=== PATIENT | male | born 1950 | race Caucasian/White ===

== ENCOUNTER 2025-07-21 13:04 | Emergency (ER) | payer MEDICARE, SELFPAY ==
--- NOTE | ~2025-07-21 | CT_ITS ---
CT HEAD CTA NECK, CTA HEAD Clinical History: weakness unilateral Comparison: None TECHNIQUE: Unenhanced axial images skull base to vertex Coronal, sagittal reformats Helical images thoracic inlet to vertex IV contrast information not listed in PACS Coronal, sagittal reformats. Multi planar MIPS. CT images acquired with automatic exposure control for dose reduction DLP: 1828 mGy-cm Findings: CT HEAD Infarct left parietal lobe. No associated mass effect or sulcal effacement. Small hypodense focus adjacent to frontal horn of right lateral ventricle, likely chronic white matter microvascular ischemic change. Sulci, ventricles: Unremarkable. No intracerebral hemorrhage. No evidence acute territorial infarct. No mass effect, midline shift. Bony calvarium intact. Visualized paranasal sinuses: Clear. Mastoid air cells: Clear. No abnormal foci of contrast enhancement. Patent dural venous sinuses. CTA NECK NASCET Criteria utilized Aortic arch: No aneurysm or dissection. Great vessel origins: No stenosis. CCAs: No dissection. No stenosis. Cervical ICAs: Bulb calcifications but patent without significant stenosis. Vertebral Arteries: Patent. Lung Apices: Clear. Thyroid: Unremarkable. Nodes: No enlarged nodes. Bones: No acute bony abnormality. CTA HEAD: Aneurysms: None. Intracranial ICAs: Patent, unremarkable. ACAs and their distal branches: Patent, unremarkable. A-Comm: Identified. Patent, unremarkable. MCAs and their distal branches: Patent, unremarkable. Basilar artery: Patent, unremarkable. government affairs manager and their distal branches: Patent, unremarkable. P-Comms: Neither side present. IMPRESSION: CT HEAD: 1. No acute intracranial findings. 2. Chronic infarct left parietal lobe. CTA NECK: 1. No ICA stenosis or other acute arterial abnormality. CTA HEAD: 1. No large vessel arterial occlusive disease or other acute findings. 2. No aneurysms. Reviewed, dictated and finalized at location R. BROKER
--- NOTE | ~2025-07-21 | XR_ITS ---
Examination: XR chest 1V portable Clinical History: weakness Comparison: None Technique: Portable AP Findings: Heart size mildly enlarged. Lungs clear. No acute bony abnormality. IMPRESSION: 1. No acute cardiopulmonary findings given portable technique. Reviewed, dictated and finalized at location R. CONDITIONING UNIT TESTER
[2025-07-21 13:02] VITALS: BP 142/81; PULSE 75; RESP 20; O2SAT 97
[2025-07-21 13:06] VITALS: BP 142/81; PULSE 76; RESP 22; TEMP 37.2; O2SAT 96
--- NOTE | 2025-07-21 13:06 | ECG_ITS ---
Test Date: 2025-07-21 13:27:20 Measurements Intervals [place] Rate: 75 P: 69 MS: 179 QRS: 85 QRSD: 137 T: 2 QT: 398 QTc: 447 Interpretive Statements SINUS RHYTHM RIGHT BUNDLE BRANCH BLOCK INFERIOR INFARCT, AGE INDETERMINATE BASELINE ARTIFACT- I, III, AVR, AVL, AVF, V4-V6 ABNORMAL ECG No previous ECG available for comparison Electronically Signed On 07-21-2025 16:04:13 [employer]CHING MACHINE OPERATOR by Frank Eubanks D.O.
--- NOTE | 2025-07-21 13:08 | ED_ITS ---
HPI - Neuro Symptoms/Deficit General Chief Complaint: Suspected CVA Stated Complaint: poss CVA Time Seen by Provider: 07/21/25 13:07 History of Present Illness HPI Narrative: 74-year-old male prior history of TIA present to the emergency department for evaluation for acute onset of right sided weakness. Patient was at a restaurant with his family only walked out patient had a stumble but did not injure himself. Patient was having difficulty unlocking the car door with his right hand. Patient went to lay down states he did not feel well. The initial stumble the patient's last known normal was at 12:00 p.m.. Patient does have a prior history of TIA. Related Data Allergies Allergy/AdvReac Type Severity Reaction Status Date / Time No Known Allergies Allergy Verified 07/21/25 13:35 Course Vital Signs Vital signs: Vital Signs Pulse Rate 75 07/21/25 13:02 Respiratory Rate 20 07/21/25 13:02 Blood Pressure 142/81 H 07/21/25 13:02 Pulse Oximetry 97 07/21/25 13:02 Temperature 99 F 07/21/25 13:35 Pulse Rate 82 07/21/25 13:35 Respiratory Rate 20 07/21/25 13:35 Blood Pressure 142/81 H 07/21/25 13:36 Pulse Oximetry 97 07/21/25 13:35 Oxygen Delivery Room Air 07/21/25 13:35 [facility] MDM Narrative Medical decision making narrative: 74-year-old male presents emergency department for evaluation for right-sided weakness confusion and stroke symptoms that started at noon. Patient is not normal was 12:00 p.m.. Upon arrival to the emergency department patient did not have flaccid paralysis of the right side but did have a tremor and did have decreased coordination of the right side. Patient did have right-sided gaze deviation. Patient was able to answer some questions but is confused and not able to participate in the neuro exam. Patient's family states he does have heavy prior history of TIA for which he was treated at [place]. Patient does take Xarelto. 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 Due to concern for seizure activity patient was treated with 1 g of IV Keppra and 2 g of IV Versed. Patient's tremor on the right did improve but no significant change in the patient's mental status. I did discuss the case with Dr. Romo at [facility] and patient was accepted for transfer. I discussed the case with the ED physician Dr. Shine and patient was accepted for transfer. Patient's and patient family were updated on the concern for CVA versus focal seizure. Patient will be transferred to state this and was hospital up emergency department by helicopter. Patient was protecting his airway at time of transfer. Patient's blood pressure was 120/89. Differential Diagnosis Differential Diagnosis: CVA, focal seizure, TIA, subdural hematoma, subarachnoid hemorrhage Lab Data MDM Lab Attestation statement: I personally reviewed the patient's lab results. 07/21/25 13:27 07/21/25 13:27 Labs: Lab Results 07/21/25 Range/Units 13:27 WBC 8.3 (4.5-10.0) K/mm3 RBC 5.00 (4.6-6.20) M/mm3 Hgb 14.4 (14.0-18.0) g/dL Hct 45.5 (42.0-52.0) % MCV 91.0 (80-100) fl MCH 28.8 (26-34) pg MCHC 31.6 L (32-36) g/dl RDW 14.5 (11.5-14.5) % Plt Count 180 (150-375) k/mm3 MPV 10.1 (7.4-10.4) fl Immature Gran % (Auto) 0.4 (0-0.5) % Neut % (Auto) 76.4 H (45.5-73.1) % Lymph % (Auto) 12.7 L (18.3-44.2) % [place] % (Auto) 9.3 H (2.6-8.5) % Eos % (Auto) 0.8 (0-4.4) % Baso % (Auto) 0.4 (0.2-1.2) % Lymph # (Auto) 1.05 (0.9-3.2) K/mm3 [place] # (Auto) 0.8 H (0.1-0.6) K/mm3 Eos # (Auto) 0.1 (0-0.3) K/mm3 Baso # (Auto) 0.0 (0.0-0.1) K/mm3 Abs Immat Gran (auto) 0.03 (0.00-0.031) K/mm3 Absolute Neuts (auto) 6.3 (1.3-6.7) K/mm3 Absolute Nucleated RBC 0.000 (0.0-0.012) K/mm3 Nucleated RBC % 0.0 (0.0-0.2) % PT 16.2 H (11.1-14.7) Seconds INR 1.3 APTT 30.2 (22.3-36.8) Seconds Sodium 134 L (137-145) mmol/L Potassium 4.1 (3.4-5.0) mmol/L Chloride 103 (98-107) mmol/L Carbon Dioxide 25 (22-30) mmol/L Anion Gap 6 (4-12) mmol/L BUN 23 H (9-20) mg/dL Creatinine 1.04 (0.7-1.3) mg/dL Estim Creat Clear Calc 72 ml/min Estimated GFR > 60 (59 - ) Glucose 112 H (65-110) mg/dL Calcium 9.6 (8.4-10.2) mg/dL Total Bilirubin 0.5 (0.2-1.3) mg/dL AST 36 (17-59) U/L ALT 34 (6-50) U/L Alkaline Phosphatase 76 (38-126) U/L Troponin I 0.012 (0.000-0.034) ng/mL Total Protein 6.5 (6.3-8.2) g/dL Albumin 3.7 (3.5-5.1) g/dL Imaging Data Radiologist's impression: ITS Impressions Head/Neck CTA 07/21/25 13:26 IMPRESSION: CT HEAD: 1. No acute intracranial findings. 2. Chronic infarct left parietal lobe. CTA NECK: 1. No ICA stenosis or other acute arterial abnormality. CTA HEAD: 1. No large vessel arterial occlusive disease or other acute findings. 2. No aneurysms. Chest X-Ray 07/21/25 13:40 IMPRESSION: 1. No acute cardiopulmonary findings given portable technique. Critical Care Time Critical Care Time Critical Care Time: Yes Time Type: Continuous Initial evaluation, discuss w/ involved parties, attempting to gather old records: 10 minutes Documenting medical record: 10 minutes Review of results (EKG's, labs, imaging): 5 minutes Serial repeat bedside evaluation: 15 minutes Discussing case with multiple memebers of the care team and consultants: 15 minutes Total Critical Care Time: 55 Discharge Plan Discharge Clinical Impression: Acute CVA (cerebrovascular accident), Partial seizure Patient Disposition: Acute Care Hospital Condition: Serious Patient Language: Luxembourgish Follow-up/Referrals: PHYSICIAN NOT ON STAFF,NONSTAFF [Primary Care Provider] Quality Stroke Scale Stroke Scale 1: Stroke scale date:: 07/21/25 Stroke scale time:: 13:20 1a Level of consciousness: alert-0 1b Level of consciousness questions: answers none correctly-2 1c Level of consciousness commands: obeys neither correctly-2 2 Best gaze: forced deviation-2 3 Visual: no visual loss-0 4 Facial palsy: normal-0 5a Motor: left arm: no drift-0 5b Motor: right arm: some effort/gravity-2 6a Motor: left leg: some effort/gravity-2 6b Motor: right leg: no drift-0 7 Limb ataxia: present in two limbs-2 8 Sensory: normal-0 9 Best language: no aphasia-0 10 Dysarthria: normal-0 11 Extinction and inattention: no abnormality-0 Level:: 12
[2025-07-21] MEDS: levETIRAcetam 1000MG/NACL100ML 1,000 MG/100 ML BAG 400 MG IVPB (13:33)
[2025-07-21] MEDS: MIDAZOLAM HCL (*CRX) 2 MG/2 ML VIAL IV PUSH (13:34)
[2025-07-21 13:35] VITALS: PULSE 82; RESP 20; TEMP 37.2; O2SAT 97
[2025-07-21 13:35] LABS: Hematocrit 45.5 % (42.0-52.0); Hemoglobin 14.4 g/dL (14.0-18.0); Immature Granulocyte Percent A 0.4 % (0-0.5); Lymphocytes Absolute Auto 1.05 K/mm3 (0.9-3.2); Mean Corpuscular HGB Conc 31.6 g/dl (32-36); Mean Corpuscular Hemoglobin 28.8 pg (26-34); Mean Corpuscular Volume 91.0 fl (80-100); Nucleated Red Blood Cells Absolute Auto 0.000 K/mm3 (0.0-0.012); Nucleated Red Blood Cells Perc 0.0 % (0.0-0.2); Platelet Count Result 180 k/mm3 (150-375); Red Blood Count 5.00 M/mm3 (4.6-6.20); White Blood Count 8.3 K/mm3 (4.5-10.0)
[2025-07-21 13:36] VITALS: BP 142/81
[2025-07-21 13:47] LABS: INR 1.3; Prothrombin Time 16.2 Seconds (11.1-14.7)
[2025-07-21 13:48] LABS: Alanine Aminotransferase 34 U/L (6-50); Albumin Level 3.7 g/dL (3.5-5.1); Alkaline Phosphatase 76 U/L (38-126); Anion Gap 6 mmol/L (4-12); Aspartate Amino Transferase 36 U/L (17-59); Bilirubin,Total 0.5 mg/dL (0.2-1.3); Blood Urea Nitrogen 23 mg/dL (9-20); Calcium 9.6 mg/dL (8.4-10.2); Carbon Dioxide 25 mmol/L (22-30); Chloride 103 mmol/L (98-107); Estimated CRCL calculation 72 ml/min; Estimated Glomerular Filt Rate > 60; Glucose 112 mg/dL (65-110); Partial Thromboplastin Time 30.2 Seconds (22.3-36.8); Potassium 4.1 mmol/L (3.4-5.0); Sodium 134 mmol/L (137-145); Total Protein 6.5 g/dL (6.3-8.2)
--- OUTSIDE RECORDS SUMMARY | 2025-07-21 13:52 | XMS_ITS | Clinical Summary ---
Author Organization [facility] Address [address] [place] [address] Care Team Providers Care Data Governance Consultant Name Role Phone Aby Meyer NP Primary Care Pr ovider Allergies Active Allergy Reactions Criticality Noted Date Comments Codeine Itching,Hives High 09/19/2018 Medications metFORMIN (GLUCOPHAGE) 500 mg tabletIndications: Newly diagnosed diabetes (HCC) Take 1 tablet (500 mg total) by mouth 2 (two) times a day with meals 180 tablet 05/04/20 25 Active omeprazole (PriLOSEC) 20 mg capsuleIndications :Heart burn Take 1 capsule (20 mg total) by mouth daily 90 capsule 05/04/20 25 Active tamsulosin (FLOMAX) 0.4 mg extended release capsuleIndications :Benign prostatic hyperplasia without lower urinary tract symptoms Take 1 capsule (0.4 mg total) by mouth daily 90 capsule 2 05/04/20 25 Active rivaroxaban (Xarelto) 20 mg tabletIndications: Chronic a-fib (HCC) Take 1 tablet (20 mg total) by mouth daily with dinner 90 tablet 05/04/20 25 Active amLODIPine (NORVASC) 5 mg tabletIndications: HTN (hypertension), benign Take 1 tablet (5 mg total) by mouth daily 90 tablet 05/04/20 25 Active atorvastatin (LIPITOR) 40 mg tabletIndications: Moderate mixed hyperlipidemia not requiring statin therapy Take 1 tablet (40 mg total) by mouth daily 90 tablet 05/04/20 25 Active lisinopril-hydroCH LOROthiazide (ZESTORETIC) 10-12.5 mg per tabletIndications: hypertension Take 1 tablet by mouth daily 90 tablet 05/04/20 25 Active metoprolol (LOPRESSOR) 100 mg tabletIndications: Chronic a-fib (HCC),HTN (hypertension), benign Take 0.5 tablets (50 mg total) by mouth 2 (two) times a day 90 tablet 05/04/20 25 Active sildenafiL (VIAGRA) 50 mg tabletIndications: Erectile dysfunction, unspecified erectile dysfunction type Take 1 tablet (50 mg total) by mouth daily as needed for erectile dysfunction 10 tablet 05/04/20 25 Active Active Problems Problem Noted Date Diagnosed Date Heart burn 05/04/2025 Assessment & Plan (05/04/2025 4:11 PM CDT): Continue omeprazole 20 mg daily. Avoid late meals, elevate head of bed, limit trigger foods. Orders: omeprazole (PriLOSEC) 20 mg capsule; Take 1 capsule (20 mg total) by mouth daily Benign prostatic hyperplasia without lower urinary tract symptoms 05/04/2025 Assessment & Plan (05/04/2025 4:11 PM CDT): Continue tamsulosin nightly. Monitor for dizziness, hypotension. If LUTS worsens, consider finasteride or urology referral. Orders: tamsulosin (FLOMAX) 0.4 mg extended release capsule; Take 1 capsule (0.4 mg total) by mouth daily PSA screen; Future Chronic a-fib 05/04/2025 Assessment & Plan (05/04/2025 4:11 PM CDT): Continue rivaroxaban 20 mg daily, s/p ablation 12/2024, on metoprolol for rate control. Continue metoprolol. Monitor for bruising, bleeding. Orders: rivaroxaban (Xarelto) 20 mg tablet; Take 1 tablet (20 mg total) by mouth daily with dinner metoprolol (LOPRESSOR) 100 mg tablet; Take 0.5 tablets (50 mg total) by mouth 2 (two) times a day CBC with auto differential; Future Comprehensive metabolic panel; Future Erectile dysfunction 05/04/2025 Assessment & Plan (05/08/2025 3:54 PM CDT): Erectile dysfunction likely multifactorial (vascular disease, diabetes, age, beta norma use). Patient interested in tadalafil daily plus sildenafil PRN. Given history of CAD s/p CABG, HFrEF, AFib on rivaroxaban, TIA, and BPH on tamsulosin-requires careful consideration due to hypotension risks and cardiac status. Increases risk of hypotension especially with tamsulosin. Potential side effects flushing, headache, nasal congestion, dizziness, we are vision changes, priapism. Plan to discuss with collaborate or given complex cardiac history before initiating dual therapy. We will consider to the tadalafil 5 mg daily for baseline improvement in erectile dysfunction. Sildenafil 25 mg PRN (max once daily) for breakthrough ED if needed. Separate both from tamsulosin by greater than 4 hours to minimize hypotension rest. Orders: sildenafiL (VIAGRA) 50 mg tablet; Take 1 tablet (50 mg total) by mouth daily as needed for erectile dysfunction HFrEF (heart failure with reduced ejection fract ion) 02/01/2025 Newly diagnosed diabetes 06/09/2019 Assessment & Plan (05/04/2025 4:11 PM CDT): Continue metformin; titrate up as tolerated to 1000 mg b.i.d. if GI side effects minimal. Check hemoglobin A1c every 3 months until stable, goal less than 7%. Consistent carb diet. Encourage exercise 150 minute per week as tolerated. Annual diabetic eye exam, foot exam, urine albumin creatinine ratio. Orders: RetinaVue Scanner - OU - Both Eyes metFORMIN (GLUCOPHAGE) 500 mg tablet; Take 1 tablet (500 mg total) by mouth 2 (two) times a day with meals Hemoglobin A1c; Future Elevated LFTs 09/26/2018 Atherosclerosis of [place] co ronary artery of [place] heart without angina pectoris 09/19/2018 HTN (hypertension), benign 09/19/2018 Assessment & Plan (05/04/2025 4:11 PM CDT): Continue lisinopril-HCTZ, amlodipine, metoprolol. Goal BP less than 130/80. Continue regimen, check CMP every 3-6 months. Encourage home blood pressure monitoring on lifestyle measures. Watch for low blood pressure. Orders: amLODIPine (NORVASC) 5 mg tablet; Take 1 tablet (5 mg total) by mouth daily lisinopril-hydroCHLOROthiazide (ZESTORETIC) 10-12.5 mg per tablet; Take 1 tablet by mouth daily metoprolol (LOPRESSOR) 100 mg tablet; Take 0.5 tablets (50 mg total) by mouth 2 (two) times a day CBC with auto differential; Future Comprehensive metabolic panel; Future Lipid panel; Future Albumin Creatinine Ratio, Urine; Future Hyperlipidemia 09/19/2018 Assessment & Plan (05/04/2025 4:11 PM CDT): Continue atorvastatin 40 mg daily. Repeat lipid every 6-12 months. Orders: atorvastatin (LIPITOR) 40 mg tablet; Take 1 tablet (40 mg total) by mouth daily Lipid panel; Future Albumin Creatinine Ratio, Urine; Future Mild asthma without complication 09/19/2018 S/P CABG (coronary artery bypass graft) 09/19/19 Encounters Date Type Department Care Team Description 07/09/2025 Telephone [facility] Cardiology [address] [address] Deep Medina MD Scheduling Appointments 05/06/2025 Results Follow-Up [facility] [address] [place] [phone] Aby Meyer NP CBC with auto differential, Comprehensive metabolic panel, PSA screen, Additional followed-up results: 5 05/04/2025 11:02 AM CDT - 05/04/2025 11:59 PM CDT Hospital Encounter [address] [phone] Chronic a-fib (HCC); HTN (hypertension), benign; Benign prostatic hyperplasia without lower urinary tract symptoms; Newly diagnosed diabetes (HCC); Moderate mixed hyperlipidemia not requiring statin therapy Discharge Disposition: Discharge to home or self care 05/04/2025 10:00 AM CDT Office Visit [facility] [address] [phone] Aby Meyer NP Newly diagnosed diabetes (HCC) (Primary Dx); Chronic a-fib (HCC); Moderate mixed hyperlipidemia not requiring statin therapy; HTN (hypertension), benign; Heart burn; Benign prostatic hyperplasia without lower urinary tract symptoms; Erectile dysfunction, unspecified erectile dysfunction type from Last 3 Months Immunizations Immunization Administration Dates Next Due Influenza, Trivalent, High D ose, Split, Preservative Free, Intramuscular 06/08/2019,09/19/2018 Pneumococcal Conjugate PCV 13 09/19/2018 Surgical History Surgery Date Site/Laterality Comments ABLATION 12/24/2024 Medical History Medical History Date Comments Hypertension Transient ischemic attack (TIA) 08/09/2024 Asthma Atrial fibrillation (HCC) Enlarged prostate Social History Tobacco Use Types Packs/Day Years Used Date Smoking Tobacco: Former Cigarettes S tarted: 1970 Smokeless Tobacco: Current Chew Tobacco Cessation:Ready to Q uit: Not Asked; Counseling Given: Not Answered PHQ-2 Answer Date Recorded PHQ-2 Total Score (If total score is 3 or more points, staff should administer the PHQ-9) 0 02/01/2025 PHQ-9 Answer Date Recorded PHQ-9 Total Score 0 02/01/2025 Personal Safety Answer Date Recorded Have you ever been in or are you currently in a harmful physical or emotional relationship or is someone making you feel afraid or unsafe? Denies 01/24/2025 Sex and Gender Information Value Date Recorded Sex Assigned at Not on file Legal Sex Male 8:05 AM [employer] Gender Identity Not on file Sexual Orientation Not on file Last Filed Vital Signs Vital Sign Reading Time Taken Comments Blood Pressure 120/66 05/04/2025 9:53 AM CDT Pulse 68 05/04/2025 9:53 AM CDT Temperature 36.5 C (97.7 F) 05/04/2025 9:53 AM CDT Respiratory Rate 16 01/24/2025 3:45 PM CDT Oxygen Saturation 98% 05/04/2025 9:53 AM CDT Inhaled Oxygen Concentration - - Weight 102.1 kg (225 lb) 05/04/2025 9:53 AM CDT Height 182.9 cm (6') 05/04/2025 9:53 AM CDT Body Mass Index 30.52 05/04/2025 9:53 AM CDT Plan of Treatment Health Maintenance Due Date Last Done Comments Colon Cancer Screening-Colonoscopy 1952 Hepatitis C Screening 1950 Dilated Eye Exam 1952 Foot Exam 1952 Hepatitis B Screening 1970 Zoster Vaccine (1 of 2) 2002 Abdominal Aortic Aneurysm (A AA) Screen 2017 Pneumococcal vaccine 65+ (2 of 2 - PPSV23, PCV20, or PCV21) 11/14/2018 09/19/2018 Influenza Vaccine (#1) 2025 06/08/2019, 2018 Hemoglobin A1C 11/01/2025 05/04/2025, 01/14, 02/01/2025, Additional history exists Depression Screening 02/01/2026 02/01/2025, 02/02/20 Fall Risk Assessment 02/01/2026 02/01/2025 Well Visit 65+ 02/01/2026 02/01/2025, 02/01/2025 Albumin Creatinine Ratio, Urine 05/04/2026 Lipid Panel 05/04/2026 05/04/2025, 01/14, 09/20/2018 eGFR 05/04/2026 05/04/2025, 01/24/2025 DTaP/Tdap/Td Vaccine (3 - Td or Tdap) 02/27/2027 02/27/2017, 09/27/2014 Procedures Procedure Name Priority Date/Time Associated Diagnosis Comments EGFR Routine 05/04/2025 10:50 AM CDT Chronic a-fib (HCC) HTN (hypertension), benign ALBUMIN CREATININE RATIO, URINE Routine 05/04/2025 10:50 AM CDT Moderate mixed hyperlipidemia not requiring statin therapy HTN (hypertension), benign DIFFERENTIAL AUTO Routine 05/04/2025 10: 50 AM CDT Chronic a-fib (HCC) HTN (hypertension), benign LIPID PANEL Routine 05/04/2025 10:50 AM CDT Moderate mixed hyperlipidemia not requiring statin therapy HTN (hypertension), benign HEMOGLOBIN A1C Routine 05/04/2025 10:50 AM CDT Newly diagnosed diabetes (HCC) PSA SCREEN Routine 05/04/2025 10:50 AM CDT Benign prostatic hyperplasia without lower urinary tract symptoms COMPREHENSIVE METABOLIC PANEL Routine 05/04/2025 10:50 AM CDT Chronic a-fib (HCC) HTN (hypertension), benign CBC WITH AUTO DIFFERENTIAL Routine 05/04/2025 10:50 AM CDT Chronic a-fib (HCC) HTN (hypertension), benign from Last 3 Months Results * eGFR (05/04/2025 10:50 AM CDT) eGFR 83 >=60 mL/min/1. 73 m2 Comment: Interpretive Data Reference Interval Normal >/= 90 mL/min/1.73m2 Mildly decreased* 60 - 89 mL/min/1.73m2 Mildly to moderately decreased 45 - 59 mL/min/1.73m2 Moderately to severely decreased 30 - 44 mL/min/1.73m2 Severely decreased 15 - 29 mL/min/1.73m2 Kidney Failure < 15 mL/min/1.73m2 *Relative to young adult level Estimated glomerular filtration rate is determined by the 2020 CKD-EPI equation recommended by the National Kidney Foundation (A Unifying Approach to GFR Estimation: Recommendations of the NKF-ASK Task Force on Reassessing the Inclusion of Race in Diagnosing Kidney Disease, JASN 202). The CKD-EPI equation should not be used for patients with unstable renal function and has not been validated in children and those over 70. Current interpretive data was last reviewed 2021. Blood 05/04/2025 10:5 0 AM CDT 05/04/2025 2:42 PM CDT us Aby Meyer [employer]CR[employer] SUPERVISOR LAB BLOOD ORDERA BLES Final Result [facility] ([place]) [address] Department of Laboratories [place] [id number] * (ABNORMAL) Differential, auto (05/04/2025 10:50 AM CDT) Neutrophil abs 5.98 1.50 - 6.50 K/cumm Imm gran abs 0.02 0.00 - 0.10 K/cumm [facility] ([place]) Lymphocyte abs 1.48 0.80 - 3.30 K/cumm [facility] ([place]) Monocyte abs 0.88(H) 0.20 - 0.80 K/cumm [facility] ([place]) Eosinophil abs 0.11 0.00 - 0.50 K/cumm [facility] ([place]) Basophil abs 0.04 0.00 - 0.10 K/cumm [facility] MBS () Neutrophil pct 70.3 % [facility] ([place] Comment: Interpretive Data Percent cell count reference ranges are not reported, since discordance with absolute values may lead to misinterpretation of CBC data. Current Interpretive Data was last revised on 2017. Imm gran pct 0.2 % [facility] ([place]) Comment: Interpretive Data Percent cell count reference ranges are not reported, since discordance with absolute values may lead to misinterpretation of CBC data. Current Interpretive Data was last revised on 2017. Lymphocyte pct 17.4 % [facility] ([place] Comment: Interpretive Data Percent cell count reference ranges are not reported, since discordance with absolute values may lead to misinterpretation of CBC data. Current Interpretive Data was last revised on 2017. Monocyte pct 10.3 % [facility] ([place]) Comment: Interpretive Data Percent cell count reference ranges are not reported, since discordance with absolute values may lead to misinterpretation of CBC data. Current Interpretive Data was last revised on 2017. Eosinophil pct 1.3 % [facility] ([place] Comment: Interpretive Data Percent cell count reference ranges are not reported, since discordance with absolute values may lead to misinterpretation of CBC data. Current Interpretive Data was last revised on 2017. Basophil pct 0.5 % [facility] ([place]) Comment: Interpretive Data Percent cell count reference ranges are not reported, since discordance with absolute values may lead to misinterpretation of CBC data. Current Interpretive Data was last revised on 2017. Blood 05/04/2025 10:5 0 AM CDT 05/04/2025 2:42 PM CDT Aby Mccain-Joseph [employer]PER[employer] LAB BLOOD ORDERA BLES Final Result Performing Organization Address [facility] Co de Phone Number [facility] [place] [address] [place] [address] * PSA screen (05/04/2025 10:50 AM CDT) PSA-Total 1.82 <=6.20 ng/mL Comment: Interpretive Data AGE SEX REFERENCE INTERVAL 0 minutes-150 years Female None 0 minutes-49 years Male None 50-59 years Male 0-3.90 60-69 years Male 0-5.40 70-79 years Male 0-6.20 80-150 years Male 0-6.20 The Jaime PSA Total assay procedure was used. Results from different manufacturers or methods may not be comparable. Serial testing should be performed using the same method. Current interpretive data last revised 21 Blood 05/04/2025 10:5 0 AM CDT 05/04/2025 2:42 PM CDT Aby Aroraianjc-Joseph [employer] SUPER[employer] LAB BLOOD ORDERA BLES Final Result Performing Organization Address [facility] de Phone Number [facility]) [address] [place] [address] [place] [address] * (ABNORMAL) CBC with auto differential (05/04/2025 10:50 AM CDT) WBC 8.51 3.80 - 9.90 K/cumm Hgb 14.6 13.0 - 17.5 g/dL [facility] Hct 46.2 38.9 - 50.3 % [facility]) Plt 205 150 - 400 K/cumm [facility]) MPV 11.1 9.1 - 12.3 fL [facility]) RBC 5.22 4.30 - 5.80 M/cumm [facility] ([place]) MCV 88.5 81.3 - 96.4 fL [facility] ([place]) MCH 28.0 27.1 - 33.3 pg [facility] ([place]) MCHC 31.6(L) 32.3 - 35.7 g/dL [facility] ([place]) RDW CV 15.3(H) 11.1 - 14.9 % [facility] ([place]) RDW SD 49.5(H) 35.7 - 48.1 fL [facility] ([place]) NRBC abs 0.00 0.00 - 0.01 K/cumm [facility]) Blood 05/04/2025 10:5 0 AM CDT 05/04/2025 2:42 PM CDT Aby Meyer [employer]PER[employer] LAB BLOOD ORDERA BLES Final Result Performing Organization Address City/[facility] Co de Phone Number [facility]) [address] [facility] [place] [address] * Albumin Creatinine Ratio, Urine (05/04/2025 10:50 AM CDT) Albumin Ur <12.0 mg/L Comment: Interpretive Data No reference range established. Current interpretive data was last revised 2018. Creatinine Ur 102.6 mg/dL [facility]) Comment: Interpretive Data No reference range established. Current interpretive data was last revised 2018. Albumin Creatinine Ratio, Ur <12 1 - 29 mg/g [facility]) Urine 05/04/2025 10:5 0 AM CDT 05/04/2025 3:15 PM CDT Aby Mccain-Joseph [employer] SUPER[employer]OR LAB URINE ORDERA BLES Final Result Performing Organization Address City/[facility]/ZIP Co de Phone Number [facility]) [address] Department [place] [address] * (ABNORMAL) Hemoglobin A1c (05/04/2025 10:50 AM CDT) Pathologist [facility] Hgb A1C 6.4(H) 4.0 - 5.6 % Estimated Average Glucose 137 mg/dL [facility] ([place]) Comment: The ADA recommends reporting an estimated Average Glucose (eAG) with all Hemoglobin A1c results using the equation derived from a study of 507 normal and diabetic adults. Minority populations were underrepresented and children were not included. (Diabetes Care 31:8689-9640, 2008). The eAG is not equivalent to a fasting glucose. Blood 05/04/2025 10:5 0 AM CDT 05/04/2025 2:42 PM CDT Aby Meyer NP LAB BLOOD ORDERA BLES Final Result [facility] ([place]) [address] [facility] [address] Department of Laboratories [place] [id number] * Lipid panel (05/04/2025 10:50 AM CDT) [facility] Cholesterol 106 30 - 199 mg/dL Comment: Interpretive Data Ages < or = 19 years Acceptable: <170 mg/dL Borderline high: 170-199 mg/dL High: >or= 200 mg/dL Ages > or = 20 years Desirable: <200 mg/dL Borderline high: 200-239 mg/dL High: >or= 240 mg/dL Literature References: 1. Expert Panel on Integrated Guidelines for Cardiovascular Health and Risk Reduction in Children and Adolescents. Pediatrics 2011;128:S213 2. NCEP Expert Panel. Circulation 2004;110:227 Current Interpretive Data was last revised on 2018. Triglycerides 100 <=149 mg/dL [facility] ([place]) Comment: Interpretive Data Ages < or = 9 years Acceptable: <75 mg/dL Borderline high: 75-99 mg/dL High: >or= 100 mg/dL Ages 10 to 20 years Acceptable: <90 mg/dL Borderline high: 90-129 mg/dL High: >or= 130 mg/dL Ages > or = 20 years Desirable: <150 mg/dL Borderline high: 150-199 mg/dL High: 200-499 mg/dL Very high: >or= 499 mg/dL Literature References: 1. Expert Panel on Integrated Guidelines for Cardiovascular Health and Risk Reduction in Children and Adolescents. Pediatrics 2011;128:S213 2. NCEP Expert Panel. Circulation 2004;110:227 Current Interpretive Data was last revised on 2018. HDL 43 >=40 mg/dL [facility] ([place]) Comment: Interpretive Data Ages < or = 19 years Acceptable: >45 mg/dL Borderline low: 40-45 mg/dL Low: <40 mg/dL Ages > or = 20 years Desirable: >or= 60 mg/dL Low: <40 mg/dL Literature References: 1. Expert Panel on Integrated Guidelines for Cardiovascular Health and Risk Reduction in Children and Adolescents. Pediatrics 2011;128:S213 2. NCEP Expert Panel. Circulation 2004;110:227 Current Interpretive Data was last revised on 2018. LDL, calculated 44 <=129 mg/dL [facility] ([place]) Comment: Interpretive Data Ages < or = 19 years Acceptable: <110 mg/dL Borderline high: 110-129 mg/dL High: >or= 130 mg/dL Ages > or = 20 years Optimal: <100 mg/dL Near optimal: 100-129 mg/dL Borderline high: 130-159 mg/dL High: >160 mg/dL Calculated using the Cortez LDL-C estimating equation. This equation was implemented on 2024. Prior to this date LDL-C was estimated using the Friedewald equation. Literature References: 1. Expert Panel on Integrated Guidelines for Cardiovascular Health and Risk Reduction in Children and Adolescents. Pediatrics 2011;128:S213 2. NCEP Expert Panel. Circulation 2004;110:227 3. Cortez Kaur al. JAKE Cardiol. 2020 December 14;5(5):540-548. doi: 10.1001/jamacardio.2020.0013 Current Interpretive Data was last revised on 2024. Non-HDL Cholesterol 63 mg/dL [facility] ([place]) Comment: Interpretive Data Ages < or = 19 years Acceptable: <120 mg/dL Borderline high: 120-144 mg/dL High: >145 mg/dL Ages > or = 20 years When triglycerides are >200 mg/dL, Non-HDL cholesterol is a secondary target of therapy with treatment goals that are 30 mg/dL greater than the LDL cholesterol target. Literature References: 1. Expert Panel on Integrated Guidelines for Cardiovascular Health and Risk Reduction in Children and Adolescents. Pediatrics 2011;128:S213 2. NCEP Expert Panel. Circulation 2004;110:227 Current Interpretive Data was last revised on 2018. Chol/HDL ratio 2 [facility] Blood 05/04/2025 10:5 0 AM CDT 05/04/2025 2:42 PM CDT Aby Meyer NP LAB BLOOD ORDERA BLES Final Result [facility]) [address] [place] [address] * Comprehensive metabolic panel (05/04/2025 10:50 AM CDT) Sodium 137 135 - 145 mmol/L Potassium, pl 3.9 3.3 - 4.9 mmol/L [facility] ([place]) Chloride 101 97 - 110 mmol/L [facility] ([place] CO2 24.0 22.0 - 32.0 mmol/L [facility] ([place]) Anion gap 12 2 - 15 mmol/L [facility]) BUN 21 6 - 25 mg/dL [facility] ([place]) Creatinine 0.97 0.80 - 1.30 mg/dL [facility] ([place]) Glucose 107 70 - 199 mg/dL [facility] ([place]) Comment: Interpretive Data Fasting glucose >/= 126 mg/dl is diagnostic for diabetes. Fasting is defined as no caloric intake for at least 8 hours. Fasting glucose between 100 mg/dl to 125 mg/dl is diagnostic of prediabetes. In a patient with classic symptoms of hyperglycemia or hyperglycemic crisis, a random glucose >/= 200 mg/dl is diagnostic for diabetes. In the absence of unequivocal hyperglycemia, results should be confirmed by repeat testing. The classification and Diagnosis of Diabetes Diabetes Care 202; 46: S19-S40. Current interpretive data was last revised 2022 Calcium 9.8 8.5 - 10.3 mg/dL [facility] ([place]) Bilirubin, total 0.7 0.1 - 1.2 mg/dL [facility] ([place]) Protein, pl 6.9 6.5 - 8.5 g/dL [facility] ([place]) Albumin 3.9 3.5 - 5.0 g/dL [facility] ([place]) Alk phos 77 40 - 130 Units/L [facility] ([place]) ALT 30 7 - 55 Units/L [facility] AST 34 10 - 50 Units/L [facility] ([place]) Blood 05/04/2025 10:5 0 AM CDT 05/04/2025 2:42 PM CDT us Aby Meyer [employer] LAB BLOOD ORDERA BLES Final Result [facility] [address] Department of Laboratories [place] [id number] from Last 3 Months Insurance DEVOTED MEDICARE PPO [employer] MEDICARE PPO Care Teams Data Governance Consultant Relationship Specialty Start Date End Date Aby Meyer NP [address] [place] [address] PCP - General Family Medicine 04/03/25
--- OUTSIDE RECORDS SUMMARY | 2025-07-21 13:52 | XMS_ITS | Clinical Summary ---
Author Organization [facility] e Address [address] [place] [address] Care Team Providers Care Negative Checker Name Role Phone Unavailable Primary Care Provider Unavailabl e Allergies Active Allergy Reactions Criticality Noted Date Comments Laurensharmin Faria High 09/19/2018 Medications montelukast (SINGULAIR) 10 mg tablet Take 10 mg by mouth daily at bedtime. Active multivitamin (DAILY-CRISS) tablet Take 1 Tablet by mouth daily. Active cetirizine (ZyrTEC) 10 mg tabletIndications: Mild asthma without complication, unspecified whether persistent Take 1 Tablet (10 mg) by mouth daily. 90 Tablet 3 9 Active aspirin (ECOTRIN EC) 81 mg Tablet, Delayed Release (E.C.)Indications: Atherosclerosis of [place] coronary artery of [place] heart without angina pectoris,S/P CABG (coronary artery bypass graft) Take 1 Tablet (81 mg) by mouth daily. 90 Tablet 3 9 Active metoprolol tartrate (LOPRESSOR) 100 mg tabletIndications: HTN (hypertension), benign,Atheroscler osis of [place] coronary artery of [place] heart without angina pectoris Take 1 Tablet (100 mg) by mouth 2 times daily. 180 Tablet 1 9 Active lisinopril-hydroCH LOROthiazide (ZESTORETIC) 20-25 mg tabletIndications: HTN (hypertension), benign Take 1 Tablet by mouth daily. 90 Tablet 1 9 Active albuterol HFA 90 mcg inhaler Take 2 Puffs by inhalation every 6 hours as needed for Shortness of Breath. 8.5 Gram 1 9 Active amLODIPine (NORVASC) 5 mg tabletIndications: HTN (hypertension), benign Take 1 Tablet (5 mg) by mouth daily. 90 Tablet 1 9 Active lovastatin (MEVACOR) 40 mg tabletIndications: Hyperlipidemia, unspecified hyperlipidemia type Take 1 Tablet (40 mg) by mouth daily with supper. 90 Tablet 1 9 Active Active Problems Problem Noted Date Diagnosed Date Newly diagnosed diabetes 06/09/2019 IFG (impaired fasting glucose) 09/26/2018 Elevated serum creatinine 09/26/2018 Elevated LFTs 09/26/2018 HTN (hypertension), benign 09/19/2018 Hyperlipidemia 09/19/2018 Mild asthma without complication 09/19/2018 Atherosclerosis of [place] co ronary artery of [place] heart without angina pectoris 09/19/2018 S/P CABG (coronary artery bypass graft) 09/19/19 19 Immunizations Immunization Administration Dates Next Due (PREVNAR 13)(6 WKS UP) PNEUM OCOCCAL CONJUGATE (PCV13) 0.5 ML, IM 09/19/2018 Influenza Vaccine High Dose 65+ Yrs IM 9,09/19/2018 Family History Medical History Relation Name Comments Stroke Father Diabetes Mother Other Mother Diabetes Son Relation Name Status Comments Father Mother Alive Son Social History Tobacco Use Types Packs/Day Years Used Date Smoking Tobacco: Former Smokeless Tobacco: Never Tobacco Cessation:Counseling Given: Yes Sex and Gender Information Value Date Recorded Sex Assigned at Not on file Legal Sex Male 8:21 PM [employer]CH[employer]ICIAN Gender Identity Not on file Sexual Orientation Not on file Last Filed Vital Signs Vital Sign Reading Time Taken Comments Blood Pressure 110/78 08/29/2019 2:30 PM [employer] TECHNICIAN Pulse 64 08/29/2019 2:30 PM [employer] SUP[employer] TECHNICIAN Temperature 36.5 C (97.7 F) 08/29/2019 2:30 PM [employer] SUP[employer]Y TECHNICIAN Respiratory Rate - - Oxygen Saturation 95% 08/29/2019 2:30 PM [employer] SUPPLY TECHNICIAN Inhaled Oxygen Concentration - - Weight 110.7 kg (244 lb) 08/29/2019 2:30 PM [employer] SUPPL[employer] TECHNICIAN Height 180.3 cm (5' 11) 08/29/2019 2:30 PM [employer] SUPPLY TECHNICIAN Body Mass Index 34.03 08/29/2019 2:30 PM [employer] SUPPLY TECHNICIAN Plan of Treatment Health Maintenance Due Date Last Done Comments DIABETES ANNUAL FOOT EXAM 1970 DIABETES MICROALBUMIN ANNUAL SCREEN 1970 DTAP/TDAP/TD VACCINES (1 - Tdap) 12/08/1971 COLORECTAL SCREENING 1997 Colorectal Cancer Screening 1997 FIT-DNA Q 3 years 1997 FIT/FOBT Q 1 year 1997 Flex Sig/CT Colonography Q 5 years 1997 RSV VACCINE (60+ or ) (1 - Risk 50-74 years 1-dose series) 2002 ZOSTER VACCINE (1 of 2) 2002 PNEUMOCOCCAL VACCINE 50+ YEA RS (2 of 2 - PPSV23, PCV20, or PCV21) 11/14/2018 09/19/2018 DIABETES ANNUAL RETINAL EXAM 01/07/2019 01/07/2018 LDL CHOLESTEROL ANNUAL 09/20/2019 09/20/2018 DIABETES HBA1C Q 6 MONTHS 08/01/20202019, 08/29/2019, 06/08/2019, Additional history exists INFLUENZA VACCINE (#1) 2025 06/08/2019, 2018 Procedures Procedure Name Priority Date/Time Associated Diagnosis Comments POC HEMOGLOBIN A1C Routine 08/29/2019 3: 02 PM [employer] SUP[employer] TECHNICIAN Newly diagnosed diabetes (CMS/[facility]) LIPID PANEL Routine 09/20/2018 7:42 AM [employer] SUPPLY TECHNICIAN Hyperlipidemia, unspecified hyperlipidemia type from Last 3 Months or Most Recently Relevant to Health Maintenance Results * (ABNORMAL) POC HEMOGLOBIN A1C (08/29/2019 3:02 PM C[employer]ERILE SUPPLY TECHNICIAN) HGB A1C POC 6.2(A) <=5.7 % [facility] Blood, capillary 08/29/2019 3:02 PM [employer] SUPPLY TECHNICIAN Dorothea Aguayo DO POINT OF CARE TESTING Agnes l Result [facility] CLIA# [id number] [address] [facility], [address] [address] * (ABNORMAL) LIPID PANEL (09/20/2018 7:42 AM C[employer]ERILE SUPPLY TECHNICIAN) CHOLESTEROL 145 <200 mg/dL 09/20/2018 2:53 PM C[employer]TR[employer]ERILE SUPPLY TECHNICIAN [facility] TRIGLYCERIDE 126 <150 mg/dL 09/20/2018 2:53 PM C[employer]ERILE SUPPLY TECHNICIAN [facility] HDL 37(L) 40 - 59 mg/dL 09/20/2018 2:53 PM [facility] LDL CALCULATED 83 <100 mg/dL 09/20/2018 2:53 PM [facility] NON-HDL CHOLESTEROL 108 <130 mg/dL 09/20/2018 2:53 PM [facility] Blood Venipuncture / Unknown 09/20/2018 7:42 AM C[employer]ERILE SUPPLY TECHNICIAN 09/20/2018 7:44 AM C[employer]TRAL [employer]ERILE SUPPLY TECHNICIAN [facility] - 09/20/2018 2:53 PM [employer] SUPPLY TECHNICIAN TOTAL CHOLESTEROL mg/dL Desirable <200 Borderline high 200-239 High >=240 TRIGLYCERIDES mg/dL Normal <150 Borderline high 150-199 High 200-499 Very high >=500 HDL CHOLESTEROL mg/dL Low <40 Normal 40-59 Desirable >=60 NON HDL CHOLESTEROL mg/dL Optimal <130 Near Optimal 130-159 Borderline High 160-189 Very High >=190 Calculated LDL mg/dL Optimal <100 Near Optimal 100-129 Borderline High 130-159 High 160-189 Very High >=190 ATPIII Guidelines Reference Ranges for Lipid Panels (NCEP/AMA) us Dorothea Aguayo DO CHEMISTRY ORDERABLES Final Result Performing Organization Address City/State/[facility] Co de Phone Number [facility]# [id number] [address] [place], [place] [id number] from Last 3 Months or Most Recently Relevant to Health Maintenance Insurance MEDICARE PART A AND B [facility] SUPP
[2025-07-21 13:58] LABS: Troponin I 0.012 ng/mL (0.000-0.034)
== END 2025-07-21 14:18 | disposition short-term general hospital (02) ==
PROVIDERS: Emergency Provider Emergency Medicine
DX: I63.9 Cerebral infarction, unspecified (principal); R29.712 NIHSS score 12; Z86.73 Personal history of transient ischemic attack (TIA), and cerebral infarction without residual deficits
CPT/HCPCS: 36415; 70496; 70498; 71045; 80053; 82948; 84484; 85025; 85610; 85730; 93005; 96365; 96375; 99285; J1953; J2250; Q9967